=== PATIENT | female | born 1990 | race Caucasian/White ===

== ENCOUNTER 2018-02-27 08:23 | Emergency (ER) | payer MEDICAID, OTHER ==
[~2018-02-27] VITALS: Ht 149.9 cm; Wt 92.0 kg
[~2018-02-27 08:23] MED LIST: FERR325T PO; IBUP600 PO; OXYC1SOL5 PO; PERI8.6T PO; PREN1PAK2 PO
[2018-02-27 08:27] VITALS: BP 132/69; PULSE 78; RESP 18; TEMP 98; O2SAT 100
[2018-02-27 09:34] LABS: BACTERIA, URINE MOD /hpf; BILIRUBIN, URINE NEG (NEG); BLOOD, URINE TRACE (NEG); GLUCOSE,URINE NEG (NEG); KETONE, URINE NEG (NEG); MUCUS URINE FEW /lpf (OCC); NITRITE,URINE NEG (NEG); PH, URINE 5.5 (5.0-8.5); SQUAMOUS EPITHELIAL CELL URINE 19 /hpf (0-5); URINE COLOR YELLOW (YELLW/STRAW); URINE LEUKOCYTE ESTERASE LARGE (NEG)
[2018-02-27] MEDS ORDERED: AZITHROMYCIN PWD FOR SUSP 1 GM PACKET PO ONE (10:00)
[2018-02-27] MEDS ORDERED: cefTRIAXone 250 MG VIAL IM ONE (10:00)
[2018-02-27] MEDS ORDERED: LIDOCAINE HCL 1% 50 ML VIAL XX ONE (10:00)
[2018-02-27] MEDS ORDERED: LIDOCAINE HCL 1% PF 5 ML AMPULE OTHER ONE (10:30)
--- NOTE | 2018-02-27 11:04 | PD ---
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 She says this has been going on for about a week. She denies any pain with urination. She reports occasional pelvic pain. She denies nausea or vomiting. She denies fever or chills. She has never had this before. She has had intercourse with a new partner without protection. She is unsure if her partner has similar symptoms. Severity is mild. PFSH Past Medical History ?: Not : 5 Para: 4 Past Surgical History Section: Yes Social History Alcohol Use: No Tobacco Use: No Substance Use: No Allergies-Medications (Allergen,Severity, Reaction): Coded Allergies: No Known Allergies (Verified Allergy, Unknown, 02/27/18) Reported Meds & Prescriptions Reported Meds & Active Scripts Active Bactrim DS (Sulfamethoxazole-Trimethoprim) 800-160 Mg Tab 1 Tab PO BID 5 Days Britney-Colace 8.6-50 mg (Sennosides-Docusate Sodium) 1 Tab Tab 2 Tab PO Q12H PRN Oxycodone/Acetaminophen 5-325 mg/5Ml (Oxycodone W/ Acetaminophen) 1 Tab Tab 1 Tab PO Q4H PRN Motrin 600 Mg Tab (Ibuprofen) 600 Mg Tab 600 Mg PO Q6H PRN Iron (Ferrous Sulfate) 325 Mg Tab 325 Mg PO DAILY Citranatal Dha ( W/O Vit A W/ Fe Carbo) Dha Enoc 1 Tab PO DAILY Review of Systems Except as stated in HPI: all other systems reviewed are Neg General / Constitutional: No: Fever, Chills HENT: No: Headaches, Lightheadedness Cardiovascular: No: Chest Pain or Discomfort Respiratory: No: Shortness of Breath Gastrointestinal: No: Nausea, Vomiting Genitourinary: Positive: Discharge Musculoskeletal: No: Myalgias Skin: No Rash, No Change in Pigmentation Neurologic: No: Weakness, Dizziness Physical Exam Narrative GENERAL: Awake and alert, in no acute distress. SKIN: Focused skin assessment warm/dry. HEAD: Atraumatic. Normocephalic. EYES: Pupils equal and round. No scleral icterus. No injection or drainage. ENT: No nasal bleeding or discharge. Mucous membranes pink and moist. NECK: Trachea midline. No JVD. CARDIOVASCULAR: Regular rate and rhythm. No murmur appreciated. RESPIRATORY: No accessory muscle use. Clear to auscultation. Breath sounds equal bilaterally. GASTROINTESTINAL: Abdomen soft, non-tender, nondistended. : Exam performed in the presence of a nurse. Thick yellowish discharge present. No CMT. MUSCULOSKELETAL: No obvious deformities. No clubbing. No cyanosis. No edema. NEUROLOGICAL: Awake and alert. No obvious cranial nerve deficits. Motor grossly within normal limits. Normal speech. PSYCHIATRIC: Appropriate mood and affect; insight and judgment normal. Data Data Last Documented VS Vital Signs Date Time Temp Pulse Resp B/P (MAP) Pulse Ox O2 Delivery O2 Flow Rate FiO2 02/27/18 08:27 98.0 78 18 132/69 (90) 100 Orders Orders Urinalysis - C+S If Indicated (02/27/18 08:47) Ed Urine Pregnancytest Poc (02/27/18 08:47) Gc And Chlamydia Pcr (02/27/18 08:47) Wet Prep Profile (02/27/18 08:47) Urine Culture (02/27/18 08:53) Ceftriaxone Inj (Rocephin Inj) (02/27/18 10:00) Lidocaine 1% Inj (50 Ml) (Xylocaine 1% I (02/27/18 10:00) Azithromycin Powd Pack (Zithromax Powd P (02/27/18 10:00) Lidocaine Pf 1% Inj (Xylocaine-Mpf 1% In (02/27/18 10:30) Ed Discharge Order (02/27/18 11:04) Labs Laboratory Tests Test 02/27/18 08:53 02/27/18 09:07 Urine Color YELLOW Urine Turbidity HAZY Urine pH 5.5 Urine Specific [place] 1.025 Urine Protein 30 mg/dL Urine Glucose (UA) NEG mg/dL Urine Ketones NEG mg/dL Urine Occult Blood TRACE Urine Nitrite NEG Urine Bilirubin NEG Urine Urobilinogen LESS THAN 2.0 MG/DL Urine Leukocyte Esterase LARGE Urine RBC 9 /hpf Urine WBC 32 /hpf Urine Squamous Epithelial Cells 19 /hpf Urine Bacteria MOD /hpf Urine Mucus FEW /lpf Microscopic Urinalysis Comment CULTURE INDICATED Clue Cells (Wet Prep) NONE SEEN Vaginal Trichomonas (Wet Prep) NONE SEEN Vaginal Yeast (Wet Prep) NONE SEEN Chlamydia trachomatis DNA (PCR) NOT DETECTED Neisseria gonorrhoeae DNA (PCR) NOT DETECTED MDM Medical Decision Making Medical Screen Exam Complete: Yes Emergency Medical Condition: Yes Medical Record Reviewed: Yes Differential Diagnosis BV vs UTI vs gc/chlamydia Narrative Course Patient is a 27-year-old female who comes in complaining of vaginal discharge. Exam shows a thick yellowish discharge. Wet prep sent is negative. Swab sent to test for gonorrhea and chlamydia. Patient treated with Rocephin and azithromycin. Urinalysis is positive for UTI. Given a prescription for Bactrim. She is advised follow-up with gynecology. Advised to practice safe sex. Advised return to the ED as needed for any worsening symptoms. Diagnosis Primary Impression: UTI (urinary tract infection) Qualified Codes: N30.00 - Acute cystitis without hematuria Patient Instructions: General Instructions, Sexually Transmitted Diseases (ED) , Urinary Tract Infection in Women (ED) Additional Instructions: Take all of your antibiotics. Had been treated for possible exposure to gonorrhea and chlamydia. If the test comes back positive, your partner will need to be treated. Avoid sexual intercourse for the next 2 weeks. Follow-up with gynecology. Return to the ED as needed for any worsening symptoms. Scripts Sulfamethoxazole-Trimethoprim (Bactrim DS) 800-160 Mg Tab 1 TAB PO BID for Infection for 5 Days, #10 TAB 0 Refills Prov: Dimple Garcia MD 02/27/18 Disposition: 01 DISCHARGE HOME Condition: Stable Dimple Garcia MD Feb 27, 2018 11:04
[2018-02-27] MEDS ORDERED: BACT800T5 PO (11:31)
== END 2018-02-27 11:55 | disposition home or self-care (01) ==
LOC: NEPE 08:23
DX: N30.00 Acute cystitis without hematuria (principal)
CPT/HCPCS: 81001; 84703; 87077; 87086; 87186; 87210; 87491; 87591; 96372; 99283; J0696